=== PATIENT | female | born 1985 | race Caucasian/White ===

== ENCOUNTER 2019-06-22 19:19 | Emergency (ER) | payer BC ==
[2019-06-22 19:56] VITALS: BP 124/80; PULSE 85
--- NOTE | 2019-06-22 21:33 | EDM.PDOC ---
ED HPI GENERAL MEDICAL PROBLEM - General Chief Complaint: Lower Extremity Injury/Pain Stated Complaint: UNABLE TO WALK Time Seen by Provider: 06/22/19 20:01 Source of Information: Reports: Patient History Limitations: Reports: No Limitations - History of Present Illness INITIAL COMMENTS - FREE TEXT/NARRATIVE: TRIAGE NOTE -- pt is having lower leg issues; pt has achilles issues to the left foot and a tendon issue and is in a walking boot and started physical therapy and has had 1 session. injury was from slipping on ice but did not fall down. now the right ankle and foot is swollen and hard to walk on it. was wearing delmar wrap to help with the swelling; physical therapy also worked both feet on sunday. [ End ] As above. 2 weeks ago the patient slipped on the ice and twisted her left ankle. She was seen in clinic and had x-rays. She was diagnosed with an ankle sprain. She was referred to podiatry. She saw the bin operator a few days ago and a walking boot was placed. Physical therapy was ordered. First physical therapy session was on Sunday 2 days ago. She says after the physical therapy there was increased pain in the left leg foot and ankle as well as some swelling. She also noted some swelling and pain right side also. In response to this she put an Delmar wrap around her right foot and ankle. She does take the walking boot off most of the time but does use it for comfort. There are no readily identified risk factors. Other than history of injury. The bin operator thought perhaps there was a tendinitis affecting the Achilles tendon on the left. No additional imaging such as an MRI has been done yet and that respect. 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: , Spontaneous Musculoskeletal History: Reports: Other (See Below) Other Musculoskeletal History: left jeaneth strain Psychiatric History: Reports: Depression, Other (See Below) Other Psychiatric History: Hx of Post depression Hematologic History: Reports: Idiopathic Thrombocytopenia Other Hematologic History: as a child - Infectious Disease History Infectious Disease History: Reports: Chicken Pox - Past Surgical History Female Surgical History: Reports: D&C Social & Family History - Family History Family Medical History: Noncontributory - Tobacco Use Smoking Status *Q: Never Smoker - Caffeine Use Caffeine Use: Reports: Coffee, Soda - Recreational Drug Use Recreational Drug Use: No - Living Situation & Occupation Living situation: Reports: Review of Systems - Review of Systems Review Of Systems: Comprehensive ROS is negative, except as noted in HPI. ED EXAM, GENERAL - Physical Exam Exam: See Below Exam Limited By: No Limitations General Appearance: Alert, WD/WN Eye Exam: Bilateral Eye: EOMI, PERRL Ears: Normal External Exam Nose: Normal Inspection Throat/Mouth: Normal Inspection Head: Atraumatic, Normocephalic Neck: Normal Inspection, Supple Respiratory/Chest: No Respiratory Distress, Lungs Clear, Normal Breath Sounds Cardiovascular: Regular Rate, Rhythm GI/Abdominal: Soft, Non-Tender Back Exam: Normal Inspection Extremities: Other (Mild swelling and redness of the left foot. There is some tenderness over the Achilles tendon. There is also some tenderness distally around the ankle there is no boogie calf tenderness to deep palpation. The right foot is also a bit swollen as is the lower leg distally mildly so. There is no pain on deep palpation of the calf. There is a small area dorsally distal right foot which is a little red and tender.) Neurological: Alert, Oriented Psychiatric: Normal Affect, Normal Mood Skin Exam: Warm, Dry Course - Vital Signs Last Recorded V/S: Last Vital Signs Temp 37.6 C 06/22/19 19:55 Pulse 85 06/22/19 19:55 Resp 20 06/22/19 19:55 BP 124/80 06/22/19 19:55 Pulse Ox 98 06/22/19 19:55 - Orders/Labs/Meds Orders: Active Orders 24 hr Category Date Time Status Venous Doppler Lwr Ext Bi [US] Stat Exams 06/22/19 21:18 Taken Labs: Laboratory Tests 06/22/19 06/22/19 06/22/19 Range/Units 20:30 20:30 20:30 WBC 9.04 (3.98-10.04) K/mm3 RBC 4.55 (3.98-5.22) M/mm3 Hgb 13.2 D (11.2-15.7) gm/dl Hct 40.0 (34.1-44.9) % MCV 87.9 (79.4-94.8) fl MCH 29.0 (25.6-32.2) pg MCHC 33.0 (32.2-35.5) g/dl RDW Std Deviation 39.6 (36.4-46.3) fL Plt Count 303 D (182-369) K/mm3 MPV 9.1 L (9.4-12.3) fl Neut % (Auto) 72.7 H (34.0-71.1) % Lymph % (Auto) 17.1 L (19.3-51.7) % [place] % (Auto) 6.4 (4.7-12.5) % Eos % (Auto) 3.4 (0.7-5.8) Baso % (Auto) 0.2 (0.1-1.2) % Neut # (Auto) 6.56 H (1.56-6.13) K/mm3 Lymph # (Auto) 1.55 (1.18-3.74) K/mm3 [place] # (Auto) 0.58 H (0.24-0.36) K/mm3 Eos # (Auto) 0.31 (0.04-0.36) K/mm3 Baso # (Auto) 0.02 (0.01-0.08) K/mm3 D-Dimer, Quantitative 1.39 H (0.19-0.50) mg/L Sodium 141 (136-145) mEq/L Potassium 3.8 (3.5-5.1) mEq/L Chloride 104 (98-107) mEq/L Carbon Dioxide 27 (21-32) mEq/L Anion Gap 13.8 (5-15) BUN 10 (7-18) mg/dL Creatinine 0.6 (0.55-1.02) mg/dL Est Cr Clr Drug Dosing 133.27 mL/min Estimated GFR (MDRD) > 60 (>60) mL/min BUN/Creatinine Ratio 16.7 (14-18) Glucose 93 (74-106) mg/dL Calcium 9.0 (8.5-10.1) mg/dL Total Bilirubin 0.3 (0.2-1.0) mg/dL AST 14 L (15-37) U/L ALT 11 L (14-59) U/L Alkaline Phosphatase 77 (46-116) U/L Total Protein 7.1 (6.4-8.2) g/dl Albumin 3.3 L (3.4-5.0) g/dl Globulin 3.8 gm/dL Albumin/Globulin Ratio 0.9 L (1-2) Urine HCG, Qual (NEGATIVE) 06/22/19 Range/Units 21:08 WBC (3.98-10.04) K/mm3 RBC (3.98-5.22) M/mm3 Hgb (11.2-15.7) gm/dl Hct (34.1-44.9) % MCV (79.4-94.8) fl MCH (25.6-32.2) pg MCHC (32.2-35.5) g/dl RDW Std Deviation (36.4-46.3) fL Plt Count (182-369) K/mm3 MPV (9.4-12.3) fl Neut % (Auto) (34.0-71.1) % Lymph % (Auto) (19.3-51.7) % [place] % (Auto) (4.7-12.5) % Eos % (Auto) (0.7-5.8) Baso % (Auto) (0.1-1.2) % Neut # (Auto) (1.56-6.13) K/mm3 Lymph # (Auto) (1.18-3.74) K/mm3 [place] # (Auto) (0.24-0.36) K/mm3 Eos # (Auto) (0.04-0.36) K/mm3 Baso # (Auto) (0.01-0.08) K/mm3 D-Dimer, Quantitative (0.19-0.50) mg/L Sodium (136-145) mEq/L Potassium (3.5-5.1) mEq/L Chloride (98-107) mEq/L Carbon Dioxide (21-32) mEq/L Anion Gap (5-15) BUN (7-18) mg/dL Creatinine (0.55-1.02) mg/dL Est Cr Clr Drug Dosing mL/min Estimated GFR (MDRD) (>60) mL/min BUN/Creatinine Ratio (14-18) Glucose (74-106) mg/dL Calcium (8.5-10.1) mg/dL Total Bilirubin (0.2-1.0) mg/dL AST (15-37) U/L ALT (14-59) U/L Alkaline Phosphatase (46-116) U/L Total Protein (6.4-8.2) g/dl Albumin (3.4-5.0) g/dl Globulin gm/dL Albumin/Globulin Ratio (1-2) Urine HCG, Qual Negative (NEGATIVE) Meds: Medications Discontinued Medications Generic Name Dose Route Start Last Admin Trade Name Freq PRN Reason Stop Dose Admin Ketorolac Tromethamine 60 mg 06/22/19 22:49 Toradol IM 06/22/19 22:50 ONETIME ONE - Re-Assessments/Exams Free Text/Narrative Re-Assessment/Exam: 06/22/19 22:51 There is concern related to the swelling, discomfort, history of some immobilization and the use of a ankle boot, and d-dimer modestly elevated. Venous Doppler was done bilaterally without any evidence of clot. Discussed fully with patient and her father at bedside. We will give a shot of Toradol prior to departure. test was negative. Recommend follow-up with primary. Due to the pain and the possible concern regarding the Achilles tendon on the left recommended an MRI which can be ordered by the primary. Departure - Departure Time of Disposition: 22:52 Disposition: Home, Self-Care 01 Clinical Impression: History of sprained ankle, Pedal edema, D-dimer, elevated, Leg edema Ankle pain, left Qualifiers: Chronicity: unspecified Qualified Code(s): M25.572 - Pain in left ankle and joints of left foot - Discharge Information Referrals: Bessie Del Real MD [Primary Care Provider] - Forms: ED Department Discharge Additional Instructions: You have been having pain and swelling in your ankles and other pain in distal legs and feet as well as swelling. There was concerned that you may have a blood clot. Your d-dimer was elevated which is a sensitive blood test for clots. A subsequent ultrasound/Doppler did not show any evidence of blood clots. Please report these findings to your primary. Out of concern for the pain in your Achilles tendon on the left and the recent sprain it is recommended that primary order an MRI to assess this situation. Return to ER for any troubling issue, pain fever lack of resolution of the current problem. Sepsis Event Note - Evaluation Sepsis Screening Result: No Definite Risk - Focused Exam Vital Signs: Vital Signs Temp Pulse Resp BP Pulse Ox 06/22/19 19:55 37.6 C 85 20 124/80 98 Date Exam was Performed: 06/22/19 Time Exam was Performed: 22:50 - My Orders Last 24 Hours: My Active Orders 06/22/19 21:18 Venous Doppler Lwr Ext Bi [US] Stat - Assessment/Plan Last 24 Hours: My Active Orders 06/22/19 21:18 Venous Doppler Lwr Ext Bi [US] Stat
[2019-06-22] MEDS ORDERED: Ketorolac 60 MG/2 ML SDV IM ONE (22:49)
--- NOTE | 2019-06-23 07:42 | US ---
Bilateral lower extremity deep venous ultrasound: Duplex and color Doppler imaging was obtained of the right and left common femoral, proximal greater saphenous, superficial femoral, popliteal and posterior tibial veins. Comparison: No prior venous imaging. Findings: Normal phasic flow, augmentation and compression are seen. Impression: 1. No evidence of deep venous thrombosis within the right or left lower extremities. Diagnostic code #1 This report was dictated in [place] Standard Time
== END 2019-06-22 23:05 | disposition home or self-care (01) ==
LOC: JD.ED 19:19
DX: M25.572 Pain in left ankle and joints of left foot (principal); R60.0 Localized edema; R79.1 Abnormal coagulation profile; F32.9 Major depressive disorder, single episode, unspecified; Z79.899 Other long term (current) drug therapy; Z91.018 Allergy to other foods; Z87.828 Personal history of other (healed) physical injury and trauma
CPT/HCPCS: 36415; 80053; 81025; 85025; 85379; 93970; 96372; 99284; J1885; 99283

== ENCOUNTER 2019-07-01 10:47 | Emergency (ER) | payer BC, OTHER ==
[2019-07-01 11:06] VITALS: BP 112/84; PULSE 98
[2019-07-01] MEDS ORDERED: Sodium Chloride 0.9% 10 ML Syringe FLUSH PRN (11:21)
[2019-07-01] MEDS ORDERED: Vancomycin 2 GM in Sodium Chloride 0.9% 500 ML IV ONE (12:00)
--- NOTE | 2019-07-01 12:28 | EDM.PDOC ---
ED HPI GENERAL MEDICAL PROBLEM - General Chief Complaint: Skin Complaint Stated Complaint: SKIN COMPLAINT Time Seen by Provider: 07/01/19 11:04 Source of Information: Reports: Patient, Family, Old Records History Limitations: Reports: No Limitations - History of Present Illness INITIAL COMMENTS - FREE TEXT/NARRATIVE: The patient presents with cellulitis to both feet and ankles. She said she injured both ankles on June 10 when she slipped on the ice. She was seen at the [facility] and she had x-rays done. She was told to ice and follow up with PT. She continued to have pain and swelling so she was seen by Dr [facility] An MRI was done and the bones and connective tissue looked good but there was cellulitis. She went over to [facility] for admission and she was on ceftaroline every 12 hours for 48 hours and she did good. She was discharged on Sunday. Her pain, swelling and redness are coming back. She has no fever or chills. She has no cough, congestion or runny nose, abdominal pain, nausea or vomiting. Onset: Gradual Duration: Week(s): Location: Reports: Lower Extremity, Left, Lower Extremity, Right Quality: Reports: Sharp Severity: Moderate Improves with: Reports: None Worsens with: Reports: None Associated Symptoms: Reports: No Other Symptoms - Related Data Allergies Allergy/AdvReac Type Severity Reaction Status Date / Time gluten AdvReac Vomiting Verified 07/01/19 11:38 Home Meds: Home Meds Sertraline [Zoloft] 50 mg PO DAILY 06/22/19 [History] Cephalexin [Keflex] 500 mg PO QID 07/01/19 [History] Past Medical History HEENT History: Reports: None Cardiovascular History: Reports: None Respiratory History: Reports: None Gastrointestinal History: Reports: Celiac Disease Genitourinary History: Reports: None 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: , Spontaneous Musculoskeletal History: Reports: Other (See Below) Other Musculoskeletal History: left jeaneth strain Neurological History: Reports: None Psychiatric History: Reports: Depression, Other (See Below) Other Psychiatric History: Hx of Post depression Endocrine/Metabolic History: Reports: None Hematologic History: Reports: Idiopathic Thrombocytopenia Other Hematologic History: as a child Immunologic History: Reports: None Oncologic (Cancer) History: Reports: None Dermatologic History: Reports: Cellulitis - Infectious Disease History Infectious Disease History: Reports: Chicken Pox - Past Surgical History Female Surgical History: Reports: D&C Social & Family History - Family History Family Medical History: Noncontributory - Tobacco Use Smoking Status *Q: Never Smoker - Caffeine Use Caffeine Use: Reports: Coffee - Recreational Drug Use Recreational Drug Use: No - Living Situation & Occupation Living situation: Reports: ED ROS GENERAL - Review of Systems Review Of Systems: See Below Constitutional: Reports: No Symptoms HEENT: Reports: No Symptoms Respiratory: Reports: No Symptoms Cardiovascular: Reports: No Symptoms Endocrine: Reports: No Symptoms GI/Abdominal: Reports: No Symptoms : Reports: No Symptoms Musculoskeletal: Reports: Other (Left ankle swelling with erythema and pain upon palpation. Erythema to the right ankle and foot. Good sensaton and pulses distally.) ED EXAM, SKIN/RASH Exam: See Below Exam Limited By: No Limitations General Appearance: Alert, No Apparent Distress Ears: Normal External Exam Nose: Normal Inspection Head: Atraumatic, Normocephalic Neck: Normal Inspection Respiratory/Chest: No Respiratory Distress, Lungs Clear, Normal Breath Sounds Cardiovascular: Regular Rate, Rhythm, No Edema, No Murmur GI/Abdominal: Soft, Non-Tender, No Organomegaly, No Mass Back Exam: Normal Inspection Extremities: Other (Left foot and ankle has edema, erythema and pain upon palpation. Erythema and slight edema to the right foot and ankle. Good sensation and pulses distally for both feet.) Course - Vital Signs Last Recorded V/S: Last Vital Signs Temp 97.2 F 07/01/19 11:02 Pulse 98 07/01/19 11:02 Resp 18 07/01/19 11:02 BP 112/84 07/01/19 11:02 Pulse Ox 98 07/01/19 11:02 - Orders/Labs/Meds Orders: Active Orders 24 hr Category Date Time Status Cardiac Monitoring [RC] . DIRECTED Care 07/01/19 11:21 Active Peripheral IV Care [RC] . DIRECTED Care 07/01/19 11:22 Active Sodium Chloride 0.9% [Saline Flush] Med 07/01/19 11:21 Active 10 ml FLUSH ASDIRECTED PRN Peripheral IV Insertion Adult [OM.PC] Stat Oth 07/01/19 11:21 Ordered Medication Orders Sodium Chloride (Saline Flush) 10 ml FLUSH ASDIRECTED PRN PRN Reason: Keep Vein Open Last Admin: 07/01/19 11:53 Dose: 10 ml Labs: Laboratory Tests 07/01/19 07/01/19 Range/Units 11:50 11:50 WBC 8.36 (3.98-10.04) K/mm3 RBC 4.40 (3.98-5.22) M/mm3 Hgb 12.6 (11.2-15.7) gm/dl Hct 38.5 (34.1-44.9) % MCV 87.5 (79.4-94.8) fl MCH 28.6 (25.6-32.2) pg MCHC 32.7 (32.2-35.5) g/dl RDW Std Deviation 38.8 (36.4-46.3) fL Plt Count 396 H D (182-369) K/mm3 MPV 9.6 (9.4-12.3) fl Neut % (Auto) 73.8 H (34.0-71.1) % Lymph % (Auto) 17.5 L (19.3-51.7) % [place] % (Auto) 5.6 (4.7-12.5) % Eos % (Auto) 2.9 (0.7-5.8) Baso % (Auto) 0.2 (0.1-1.2) % Neut # (Auto) 6.17 H (1.56-6.13) K/mm3 Lymph # (Auto) 1.46 (1.18-3.74) K/mm3 [place] # (Auto) 0.47 H (0.24-0.36) K/mm3 Eos # (Auto) 0.24 (0.04-0.36) K/mm3 Baso # (Auto) 0.02 (0.01-0.08) K/mm3 Sodium 139 (136-145) mEq/L Potassium 3.9 (3.5-5.1) mEq/L Chloride 101 (98-107) mEq/L Carbon Dioxide 30 (21-32) mEq/L Anion Gap 11.9 (5-15) BUN 11 (7-18) mg/dL Creatinine 0.7 (0.55-1.02) mg/dL Est Cr Clr Drug Dosing 114.23 mL/min Estimated GFR (MDRD) > 60 (>60) mL/min BUN/Creatinine Ratio 15.7 (14-18) Glucose 87 (74-106) mg/dL Calcium 9.3 (8.5-10.1) mg/dL Total Bilirubin 0.2 (0.2-1.0) mg/dL AST 22 (15-37) U/L ALT 16 (14-59) U/L Alkaline Phosphatase 106 (46-116) U/L C-Reactive Protein 2.2 H* (<1.0) mg/dL Total Protein 7.6 (6.4-8.2) g/dl Albumin 3.4 (3.4-5.0) g/dl Globulin 4.2 gm/dL Albumin/Globulin Ratio 0.8 L (1-2) Meds: Medications Generic Name Dose Route Start Last Admin Trade Name Freq PRN Reason Stop Dose Admin Sodium Chloride 10 ml 07/01/19 11:21 07/01/19 11:53 Saline Flush FLUSH 10 ml ASDIRECTED PRN Administration Keep Vein Open Discontinued Medications Generic Name Dose Route Start Last Admin Trade Name Freq PRN Reason Stop Dose Admin Vancomycin HCl 2 gm/ Sodium 500 mls @ 250 mls/hr 07/01/19 12:00 07/01/19 11: 53 Chloride IV 07/01/19 13:59 250 mls/hr ONETIME ONE Administration - Re-Assessments/Exams Free Text/Narrative Re-Assessment/Exam: 07/01/19 12:32 I ordered an IV saline lock, labs and vancomycin 2 grams IV. 07/01/19 14:03 Her CBC looks good. Her CRP was elevated at 2.2. She did get a little itchy and red faced. I was going to set her up for outpatient vancomycin but it appears she may have reacted to it. I talked with Dr Aldana and he felt levaquin would be a good option. I will set her up for that. Departure - Departure Time of Disposition: 14:05 Disposition: Home, Self-Care 01 Condition: Good Clinical Impression: Bilateral lower leg cellulitis - Discharge Information *PRESCRIPTION DRUG MONITORING PROGRAM REVIEWED*: Not Applicable *COPY OF PRESCRIPTION DRUG MONITORING REPORT IN PATIENT RONY: Not Applicable Referrals: Bessie Del Real MD [Primary Care Provider] - 1 Week Forms: ED Department Discharge Additional Instructions: Please come in the morning for outpatient antibiotics. Elevate your legs and put warm compresses on your legs. If you do not see improvement in a couple days please return here, your doctor or [place], you may need to be admitted again. Sepsis Event Note - Evaluation Sepsis Screening Result: No Definite Risk - Focused Exam Vital Signs: Vital Signs Temp Pulse Resp BP Pulse Ox 07/01/19 11:02 97.2 F 98 18 112/84 98 Date Exam was Performed: 07/01/19 Time Exam was Performed: 14:03 - My Orders Last 24 Hours: My Active Orders 07/01/19 11:21 Cardiac Monitoring [RC] . DIRECTED Sodium Chloride 0.9% [Saline Flush] 10 ml FLUSH ASDIRECTED PRN Peripheral IV Insertion Adult [OM.PC] Stat 07/01/19 11:22 Peripheral IV Care [RC] . DIRECTED - Assessment/Plan Last 24 Hours: My Active Orders 07/01/19 11:21 Cardiac Monitoring [RC] . DIRECTED Sodium Chloride 0.9% [Saline Flush] 10 ml FLUSH ASDIRECTED PRN Peripheral IV Insertion Adult [OM.PC] Stat 07/01/19 11:22 Peripheral IV Care [RC] . DIRECTED
== END 2019-07-01 14:30 | disposition home or self-care (01) ==
LOC: JD.ED 10:47
DX: L03.115 Cellulitis of right lower limb (principal); L03.116 Cellulitis of left lower limb; F32.9 Major depressive disorder, single episode, unspecified; Z91.018 Allergy to other foods; Z79.899 Other long term (current) drug therapy
CPT/HCPCS: 36415; 80053; 85025; 86140; 96365; 96366; 99283; J3370; J7040

== ENCOUNTER 2021-03-20 16:23 | Emergency (ER) | payer OTHER ==
[2021-03-20 16:43] VITALS: BP 124/71; PULSE 71
[2021-03-20] MEDS ORDERED: Sodium Chloride 0.9% 10 ML Syringe FLUSH PRN (17:07)
[2021-03-20] MEDS ORDERED: Ondansetron 4 MG/2 ML SDV IVPUSH ONE (17:08)
[2021-03-20] MEDS ORDERED: Sodium Chloride 0.9% 1,000 ML IV STA (17:08)
--- NOTE | 2021-03-20 17:21 | EDM.PDOC ---
ED HPI GENERAL MEDICAL PROBLEM - General Chief Complaint: Gastrointestinal Problem Stated Complaint: VOMITING Time Seen by Provider: 03/20/21 16:44 Source of Information: Reports: Patient, RN Notes Reviewed History Limitations: Reports: No Limitations - History of Present Illness INITIAL COMMENTS - FREE TEXT/NARRATIVE: Patient is a 35-year-old female presenting to the emergency department with complaints of abdominal cramping and vomiting. She reports that she has celiac's disease and inadvertently ate gluten today. Reports that she was at a food truck festival in ate a pasta dish. They advertised the past as gluten- free, however she states it obviously was not. Approximate hour and a half after eating, she developed vomiting. Reports that this is a typical reaction for her when she eats gluten. If it is in her system for too long, she will also developed diarrhea. She did not take any nausea medications at home. Abdomen Pain Score (Numeric/FACES): 8 - Related Data Allergies Allergy/AdvReac Type Severity Reaction Status Date / Time levofloxacin [From Levaquin] Allergy Hives Verified 03/20/21 17:43 vancomycin Allergy Hives Verified 03/20/21 17:43 gluten AdvReac Vomiting Verified 07/02/19 10:46 Home Meds: Home Meds Sertraline [Zoloft] 50 mg PO DAILY 06/22/19 [History] Ondansetron [Zofran ODT] 4 mg PO Q6H PRN #10 tab.dis 03/20/21 [Rx] Past Medical History HEENT History: Reports: None Cardiovascular History: Reports: None Respiratory History: Reports: None Gastrointestinal History: Reports: Celiac Disease Genitourinary History: Reports: None [employer] History: Reports: , Spontaneous Musculoskeletal History: Reports: Other (See Below) Other Musculoskeletal History: left jeaneth strain Neurological History: Reports: None Psychiatric History: Reports: Depression, Other (See Below) Other Psychiatric History: Hx of Post depression Endocrine/Metabolic History: Reports: None Hematologic History: Reports: Idiopathic Thrombocytopenia Other Hematologic History: as a child Immunologic History: Reports: None Oncologic (Cancer) History: Reports: None Dermatologic History: Reports: Cellulitis - Infectious Disease History Infectious Disease History: Reports: Chicken Pox - Past Surgical History GI Surgical History: Reports: Colonoscopy Female Surgical History: Reports: D&C Social & Family History - Family History Family Medical History: No Pertinent Family History - Tobacco Use Tobacco Use Status *Q: Never Tobacco User - Caffeine Use Caffeine Use: Reports: Coffee - Living Situation & Occupation Living situation: Reports: ED ROS GENERAL - Review of Systems Review Of Systems: Comprehensive ROS is negative, except as noted in HPI. ED EXAM, GI/ABD - Physical Exam Exam: See Below Exam Limited By: No Limitations General Appearance: Alert, WD/WN, No Apparent Distress Respiratory/Chest: No Respiratory Distress, Lungs Clear, Normal Breath Sounds, No Accessory Muscle Use, Chest Non-Tender Cardiovascular: Normal Peripheral Pulses, Regular Rate, Rhythm, No Edema, No Gallop, No JVD, No Murmur, No Rub GI/Abdominal Exam: Normal Bowel Sounds, Soft, No Organomegaly, No Distention, No Abnormal Bruit, No Mass, Pelvis Stable, Tender (Mild generalized tenderness throughout) Neurological: Alert, Oriented, CN II-XII Intact, Normal Cognition, Normal Gait, Normal Reflexes, No Motor/Sensory Deficits Psychiatric: Normal Affect, Normal Mood Skin Exam: Warm, Dry, Intact, Normal Color, No Rash Course - Vital Signs Last Recorded V/S: Last Vital Signs Temp 98.5 F 03/20/21 16:36 Pulse 71 03/20/21 16:36 Resp 18 03/20/21 16:36 BP 124/71 03/20/21 16:36 Pulse Ox 98 03/20/21 16:36 - Orders/Labs/Meds Labs: Laboratory Tests 03/20/21 03/20/21 Range/Units 17:22 17:22 WBC 10.44 H (3.98-10.04) K/mm3 RBC 5.22 (3.98-5.22) M/mm3 Hgb 15.4 D (11.2-15.7) gm/dl Hct 46.6 H (34.1-44.9) % MCV 89.3 (79.4-94.8) fl MCH 29.5 (25.6-32.2) pg MCHC 33.0 (32.2-35.5) g/dl RDW Std Deviation 44.5 (36.4-46.3) fL Plt Count 206 D (182-369) K/mm3 MPV 9.3 L (9.4-12.3) fl Neut % (Auto) 87.9 H (34.0-71.1) % Lymph % (Auto) 5.4 L (19.3-51.7) % [place] % (Auto) 5.6 (4.7-12.5) % Eos % (Auto) 0.7 (0.7-5.8) Baso % (Auto) 0.2 (0.1-1.2) % Neut # (Auto) 9.19 H (1.56-6.13) K/mm3 Lymph # (Auto) 0.56 L (1.18-3.74) K/mm3 [place] # (Auto) 0.58 H (0.24-0.36) K/mm3 Eos # (Auto) 0.07 (0.04-0.36) K/mm3 Baso # (Auto) 0.02 (0.01-0.08) K/mm3 Sodium 141 (136-145) mEq/L Potassium 3.2 L (3.5-5.1) mEq/L Chloride 103 (98-107) mEq/L Carbon Dioxide 26 (21-32) mEq/L Anion Gap 15.2 H (5-15) BUN 19 H (7-18) mg/dL Creatinine 0.8 (0.55-1.02) mg/dL Est Cr Clr Drug Dosing 98.07 mL/min Estimated GFR (MDRD) > 60 (>60) mL/min BUN/Creatinine Ratio 23.8 H (14-18) Glucose 126 H (70-99) mg/dL Calcium 9.5 (8.5-10.1) mg/dL Total Bilirubin 0.2 (0.2-1.0) mg/dL AST 27 (15-37) U/L ALT 23 (14-59) U/L Alkaline Phosphatase 80 (46-116) U/L C-Reactive Protein 2.3 H* (<1.0) mg/dL Total Protein 8.1 (6.4-8.2) g/dl Albumin 4.1 (3.4-5.0) g/dl Globulin 4.0 gm/dL Albumin/Globulin Ratio 1.0 (1-2) Lipase 111 (73-393) U/L Meds: Medications Discontinued Medications Generic Name Dose Route Start Last Admin Trade Name Freq PRN Reason Stop Dose Admin Sodium Chloride 1,000 mls @ 999 mls/hr 03/20/21 17:08 03/20/21 17:21 Normal Saline IV 03/20/21 18:08 999 mls/hr NOW STA Administration Ondansetron HCl 4 mg 03/20/21 17:08 03/20/21 17:21 Ondansetron 4 Mg/2 Ml Sdv IVPUSH 03/20/21 17:09 4 mg ONETIME ONE Administration Sodium Chloride 10 ml 03/20/21 17:07 03/20/21 17:21 Sodium Chloride 0.9% 10 Ml Syringe FLUSH 10 ml ASDIRECTED PRN Administration Keep Vein Open - Re-Assessments/Exams Free Text/Narrative Re-Assessment/Exam: Patient is a 35-year-old female presenting to the emergency department for treatment after inadvertently ingesting gluten. She has celiac's disease and was not aware that past as she was eating contain gluten. She has generalized abdominal tenderness, particularly in the epigastric region. Describes it as cramping in nature. Exam is otherwise unremarkable. I have ordered blood work, a 1 L bolus of normal saline, and Zofran 4 mg IV. 03/20/21 18:56 Hematology significant for WBC 10.44, potassium 3.2, anion gap 15.2, BUN 19, CRP 2.3. Patient is feeling much better after the IV fluids and Zofran. She is able to drink water. Abdominal cramping has resolved. She has had no recurrence of vomiting. We will discharge her home. I will provide her a prescription for Zofran should this recur. Discussed return precautions. Discharge instructions as documented. Departure - Departure Time of Disposition: 18:57 Disposition: Home, Self-Care 01 Condition: Good Clinical Impression: Gluten-induced enteropathy - Discharge Information *PRESCRIPTION DRUG MONITORING PROGRAM REVIEWED*: No *COPY OF PRESCRIPTION DRUG MONITORING REPORT IN PATIENT RONY: No Prescriptions: Ondansetron [Zofran ODT] 4 mg PO Q6H PRN #10 tab.dis PRN Reason: Nausea/Vomiting Instructions: Gluten-Free Diet for Celiac Disease, Adult Referrals: Bessie Del Real MD [Primary Care Provider] - Forms: ED Department Discharge Additional Instructions: AbdominalYou were seen in the emergency department today for evaluation of emptying after inadvertently consuming gluten. Blood work was completed. You do have a slightly low potassium. Blood work is otherwise normal. While in the ER, you received IV fluids and Zofran which did significantly improve your symptoms. You may go home and rest. Prescription has been sent for Zofran should you have recurrence of symptoms. If experience any new or worsening symptoms, please do not hesitate to return to the emergency department for reevaluation. Sepsis Event Note (ED) - Evaluation Sepsis Screening Result: No Definite Risk
== END 2021-03-20 19:14 | disposition home or self-care (01) ==
LOC: JD.ED 16:23
DX: K90.41 Non-celiac gluten sensitivity (principal); Z91.018 Allergy to other foods; Z88.1 Allergy status to other antibiotic agents
CPT/HCPCS: 36415; 80053; 83690; 85025; 86140; 96374; 99284; J2405; J7030